=== PATIENT | male | born 1995 | race Caucasian/White ===

== ENCOUNTER 2017-10-29 11:38 | Emergency (ER) | payer MEDICAID ==
[~2017-10-29] VITALS: Ht 175.3 cm; Wt 90.7 kg
[2017-10-29 11:56] LABS: BASOPHILS # (AUTO) 0.1 /CMM (0.0-0.2); BASOPHILS % (AUTO) 1.2 % (0.0-2.0); EOSINOPHILS % (AUTO) 1.9 % (0.0-6.0); HEMATOCRIT 43 % (39-51); LYMPHOCYTES # (AUTO) 3.2 /CMM (0.8-4.8); LYMPHOCYTES % (AUTO) 34.6 % (20.0-44.0); MEAN CORPUSCULAR HGB CONC 35 g/dl (31.0-36.0); MEAN CORPUSCULAR VOLUME 86 fL (80-96); MONOCYTES # (AUTO) 0.9 /CMM (0.1-1.30); MONOCYTES % (AUTO) 9.8 % (2.0-12.0); NEUTROPHILS # (AUTO) 4.7 /CMM (1.8-8.9); NEUTROPHILS % (AUTO) 52.5 % (43.0-81.0); PLATELET COUNT (AUTO) 327 /CMM (150-450); RDW COEFFICIENT OF VARIATION 12.7 (11.5-15.0); RED BLOOD CELL COUNT(AUTO) 4.98 MIL/uL (4.5-6.0); WHITE BLOOD COUNT (AUTO) 9.1 K/uL (4.3-11.0)
[2017-10-29] MEDS ORDERED: LORAZEPAM INJ 2 MG/ML VIAL IVP ONE (12:00)
[2017-10-29] MEDS ORDERED: LORAZEPAM INJ 2 MG/ML VIAL ONE (12:03)
[2017-10-29 12:12] LABS: ALANINE AMINOTRANSFERASE 60 U/L (12-78); ALBUMIN 3.7 g/dL (3.4-5.0); ALKALINE PHOSPHATASE 64 U/L (46-116); ASPARTATE AMINOTRANSFERASE 85 U/L (15-37); BILIRUBIN,DIRECT 0.2 mg/dL (0.0-0.2); BILIRUBIN,TOTAL 0.6 mg/dL (0.2-1.0); CALCIUM, SERUM 9.1 mg/dL (8.5-10.1); CARBON DIOXIDE 25 mmol/L (21-32); CREATININE 0.8 mg/dL (0.6-1.3); GLUCOSE 81 mg/dL (74-106); TOTAL PROTEIN, SERUM 7.6 g/dL (6.4-8.2); UREA NITROGEN, BLOOD 9 mg/dL (7-18)
[2017-10-29 12:21] LABS: CHLORIDE 100 mmol/L (98-107); SODIUM SERUM 136 mmol/L (136-145)
[2017-10-29 12:23] LABS: ACETAMINOPHEN 0 ug/ml (10-30); ALCOHOL, BLOOD < 3 mg/dL (0-0); POTASSIUM 2.6 mmol/L (3.5-5.1); SALICYLATE 1.6 mg/dL (2.8-20.0)
[2017-10-29] MEDS ORDERED: POTASSIUM CHLORIDE 20 MEQ TAB.PRT.SR PO ONE ×2 (12:57→13:00)
--- NOTE | 2017-10-29 17:01 | NUR ---
RECEIVED REPORT FROM HERMINIA TELLEZ. PT APPEARS COMFORTABLE. NAD NOTED. PT RESTING IN BED.
--- NOTE | 2017-10-29 17:32 | NUR ---
URINE COLLECTED. SENT TO LAB
[2017-10-29 17:38] LABS: APPEARANCE,URINE Clear (CLEAR); BILIRUBIN,URINE SMALL (NEGATIVE); BLOOD, URINE Negative Ery/uL (NEGATIVE); COLOR,URINE Yellow (YELLOW); KETONES,URINE 15 (NEGATIVE); LEUKOCYTE ESTERASE ,URINE Negative (NEGATIVE); NITRITE, URINE Negative (NEGATIVE); PROTEIN,URINE Negative (NEGATIVE); UGLUCOSE Negative (NEGATIVE); UROBILINOGEN,URINE 0.2 EU/dL (0.2)
[2017-10-29 18:49] LABS: BACTERIA,URINE Few /HPF (None Seen); RBC,URINE 0-2 /HPF (0-2); SQUAMOUS EPITHELIAL CELL,UR Few /HPF (None Seen); WBC,URINE 0-2 /HPF (0-3)
[2017-10-29 18:50] LABS: MUCUS,URINE Many /LPF (None Seen); URINE AMORPHOUS URATE Few /HPF (None Seen)
--- NOTE | 2017-10-29 18:50 | NUR ---
PER DR. ANIYA SUMMERS FOR PT TO EAT SANDWICH.
[2017-10-29 22:39] VITALS: BP 123/58
--- NOTE | 2017-10-29 22:40 | NUR ---
Patient is resting comfortably in bed with eyes closed. Easily aroused. VSS
--- NOTE | 2017-10-29 23:08 | NUR ---
Patient eloped from facility. ER MD notified.
== END 2017-10-29 23:08 | disposition left against medical advice (07) ==
LOC: ER 11:40
DX: F41.9 Anxiety disorder, unspecified (principal); J45.909 Unspecified asthma, uncomplicated; Z88.0 Allergy status to penicillin
CPT/HCPCS: 36415; 70450-TC; 71045-TC; 80048-TC; 80076-TC; 80305; 81000-TC; 85025-TC; A4606; G0480; J2060; Z7610

== ENCOUNTER 2023-05-07 23:39 | Emergency (ER) | payer MEDICAID ==
[~2023-05-07] VITALS: Ht 177.8 cm; Wt 90.7 kg
[2023-05-07] MEDS ORDERED: TDAP [DIPH/PERTUSSIS/TET] 0.5 ML VIAL IM ONE (23:57)
[2023-05-08] MEDS ORDERED: TDAP [DIPH/PERTUSSIS/TET] 0.5 ML VIAL IM ONE
[2023-05-08 00:45] VITALS: BP 136/81; TEMP 97.9; O2SAT 97
[2023-05-08] MEDS ORDERED: ACETAMINOPHEN 325 MG TABLET ONE (00:58)
[2023-05-08] MEDS ORDERED: ACETAMINOPHEN 325 MG TABLET PO ONE (01:00)
== END 2023-05-08 01:05 | disposition home or self-care (01) ==
LOC: ER 23:40
DX: S61.411A Laceration without foreign body of right hand, initial encounter (principal); J45.909 Unspecified asthma, uncomplicated; Z88.0 Allergy status to penicillin; Z60.2 Problems related to living alone; W25.XXXA Contact with sharp glass, initial encounter; Y93.89 Activity, other specified; Y92.89 Other specified places as the place of occurrence of the external cause; Y99.8 Other external cause status
CPT/HCPCS: 73130-TC; 90715